=== PATIENT | female | born 1995 | race Caucasian/White ===

== ENCOUNTER 2017-12-25 03:45 | Emergency (ER) | payer OTHER ==
[~2017-12-25 03:45] MED LIST: ARIP10 PO; BUPR150T2; CITA20; FAMO10; FLUO10 PO; FLUO20; LAMO100 PO; LAMO25; LAMO25 PO; RANI150 PO; SERT25; SULTRIDS PO; TOPI25 PO; TOPI50 PO; [UNRECOGNIZED DRUG - REMARK]; birth control pills
== END 2017-12-25 03:59 | disposition left against medical advice (07) ==
LOC: ER 03:45
DX: Z53.21 Procedure and treatment not carried out due to patient leaving prior to being seen by health care provider (principal)

== ENCOUNTER → 2018-03-09 | Outpatient (CLI) | payer SELFPAY | END | disposition home or self-care (01) | LOC: LAB 09:45 → LAB SHORT 09:45 | PROVIDERS: Hospitalist | DX: Z12.4 Encounter for screening for malignant neoplasm of cervix (principal) | CPT/HCPCS: G0145 ==

== ENCOUNTER → 2018-03-18 | Outpatient (CLI) | payer SELFPAY | LOC: LAB SHORT 10:19 → LAB 10:19 | DX: N39.0 Urinary tract infection, site not specified (principal) | CPT/HCPCS: 87086 ==